=== PATIENT | male | born 1990 | race African-American/Black ===

== ENCOUNTER 2017-08-12 20:59 | Emergency (ER) | payer OTHER ==
[~2017-08-12] VITALS: Ht 175.3 cm; Wt 68.0 kg
[2017-08-12] MEDS ORDERED: HIV MEDS (21:20)
--- NOTE | 2017-08-12 22:28 | NUR ---
MSE COMPLETED. PT D/C'D HOME. ACIO GIVEN. PT AMBULATED W/O DIFF/TOOK ALL BELONGINGS.
[2017-08-12 22:33] VITALS: BP 142/80
== END 2017-08-12 22:34 | disposition home or self-care (01) ==
LOC: ER 21:02
DX: R55 Syncope and collapse (principal); Z59.0 Homelessness; W01.0XXA Fall on same level from slipping, tripping and stumbling without subsequent striking against object, initial encounter; Y93.89 Activity, other specified; Y92.9 Unspecified place or not applicable; Y99.9 Unspecified external cause status
CPT/HCPCS: 70450; 93005; 99284; A4663